=== PATIENT | male | born 1960 | race Two or more races ===

== ENCOUNTER 2022-12-24 13:23 | Emergency (ER) | payer SELFPAY ==
[~2022-12-24] VITALS: Ht 167.6 cm; Wt 72.6 kg
--- NOTE | 2022-12-24 13:25 | NUR ---
BIBA c/o ETOH found on the street with bottle of vodka next to him. PLACED IN BED, AWAKE- RESPONDING TO VERBAL STIMULI, BREATHING UNLABORED SATURATING AT 97%RA.
--- NOTE | 2022-12-24 13:50 | NUR ---
AT BEDSIDE FOR EVAL.
--- NOTE | 2022-12-24 14:26 | NUR ---
BLOOD SAMPLE OBTAINED SENT TO LAB
--- NOTE | 2022-12-24 14:26 | NUR ---
EKG DONE BY EMT
--- NOTE | 2022-12-24 14:29 | NUR ---
PATIENT TAKEN TO CT VIA [facility]
[2022-12-24 14:30] LABS: BASOPHILS % (AUTO) 0.4 % (0.0-2.0); HEMATOCRIT 39 % (39-51); HEMOGLOBIN 12.5 g/dL (13.5-17.5); LYMPHOCYTES # (AUTO) 3.2 K/uL (0.8-4.8); LYMPHOCYTES % (AUTO) 55.1 % (20.0-44.0); MEAN CORPUSCULAR HGB CONC 32 g/dl (31.0-36.0); MEAN CORPUSCULAR VOLUME 92 fL (80-96); MONOCYTES # (AUTO) 0.4 K/uL (0.1-1.30); MONOCYTES % (AUTO) 6.4 % (2.0-12.0); NEUTROPHILS # (AUTO) 2.2 K/uL (1.8-8.9); NEUTROPHILS % (AUTO) 37.1 % (43.0-81.0); PLATELET COUNT (AUTO) 299 K/uL (150-450); RED BLOOD CELL COUNT(AUTO) 4.19 MIL/uL (4.5-6.0); WHITE BLOOD COUNT (AUTO) 5.9 K/uL (4.3-11.0)
[2022-12-24 15:08] LABS: ALANINE AMINOTRANSFERASE 23 U/L (12-78); ALBUMIN 3.9 g/dL (3.4-5.0); ALKALINE PHOSPHATASE 94 U/L (46-116); ASPARTATE AMINOTRANSFERASE 41 U/L (15-37); BILIRUBIN,DIRECT 0.1 mg/dL (0.0-0.2); BILIRUBIN,TOTAL 0.2 mg/dL (0.2-1.0); CALCIUM, SERUM 8.8 mg/dL (8.5-10.1); CARBON DIOXIDE 28 mmol/L (21-32); CHLORIDE 107 mmol/L (98-107); CREATININE 0.9 mg/dL (0.6-1.3); GLUCOSE 107 mg/dL (74-106); POTASSIUM 4.6 mmol/L (3.5-5.1); SODIUM SERUM 144 mmol/L (136-145); TOTAL PROTEIN, SERUM 8.6 g/dL (6.4-8.2); UREA NITROGEN, BLOOD 16 mg/dL (7-18)
--- NOTE | 2022-12-24 16:05 | NUR ---
RE ASSESED PATIENT AWAKE RESPONDING TO VERBAL STIMULI- DISORIENTED.
--- NOTE | 2022-12-24 17:43 | NUR ---
REASSESSED PATIENT. P;ATIENT ABLE TO VERBALIZE HIS OWN NAME. SAID HIS NAME IS "NITO GILLIAM". UNABLE TO ANSWER OTHER QUESTIONS
--- NOTE | 2022-12-24 23:42 | NUR ---
PT ABLE TO AMBULATE WITH STEADY GAIT. PT WAS DISCHARGED. VSS.
[2022-12-24 23:44] VITALS: BP 131/76
== END 2022-12-24 23:46 | disposition home or self-care (01) ==
LOC: ER 13:28
DX: R55 Syncope and collapse (principal); F10.129 Alcohol abuse with intoxication, unspecified; S00.81XA Abrasion of other part of head, initial encounter; R94.31 Abnormal electrocardiogram [ECG] [EKG]; Z59.00 Homelessness unspecified; Y90.9 Presence of alcohol in blood, level not specified; X58.XXXA Exposure to other specified factors, initial encounter; Y93.89 Activity, other specified; Y92.89 Other specified places as the place of occurrence of the external cause; Y99.8 Other external cause status
CPT/HCPCS: 36415; 70450-TC; 72125-TC; 80048-TC; 80076-TC; 83735-TC; 84484-TC; 85025-TC